=== PATIENT | male | born 1955 | race Caucasian/White ===

== ENCOUNTER 2017-07-05 05:46 | Emergency (ER) | payer OTHER ==
[~2017-07-05] VITALS: Ht 172.7 cm; Wt 84.0 kg
[2017-07-05 05:54] VITALS: BP 108/67
== END 2017-07-05 07:41 | disposition left against medical advice (07) ==
LOC: ER 05:46
DX: J00 Acute nasopharyngitis [common cold] (principal); Z53.21 Procedure and treatment not carried out due to patient leaving prior to being seen by health care provider

== ENCOUNTER 2017-07-20 17:20 | Emergency (ER) | payer OTHER ==
[~2017-07-20] VITALS: Ht 170.2 cm; Wt 80.0 kg
[2017-07-20 17:25] VITALS: BP 132/76
== END 2017-07-20 18:10 | disposition home or self-care (01) ==
LOC: ER 18:01
DX: Z00.00 Encounter for general adult medical examination without abnormal findings (principal); Z59.0 Homelessness
CPT/HCPCS: 99283